=== PATIENT | male | born 1955 | race Caucasian/White ===

== ENCOUNTER 2017-09-14 09:58 | Emergency (ER) | payer SELFPAY ==
[~2017-09-14] VITALS: Ht 185.4 cm; Wt 79.1 kg
[2017-09-14 10:05] VITALS: TEMP 98.1
[2017-09-14] MEDS ORDERED: ZANTAC 150MG T150 MG PO (10:08)
[2017-09-14] MEDS ORDERED: CIPRO 500MG TA500 MG PO ×2 (10:08→13:12)
[2017-09-14 11:25] LABS: COLLECTION METHOD CLEAN CATCH
[2017-09-14 11:33] LABS: BASO % 0.1 % (0.0-2.0); GRAN # 6.8 (1.4-6.5); GRAN % 81.5 % (42.2-75.2); HEMATOCRIT 44.2 % (42.0-52.0); HEMOGLOBIN 15.4 g/dl (13.5-18.0); MEAN CELL VOLUME 92 fl (80.0-100.0); MEAN CORPUSCULAR HEMOGLOBIN 32 pg (27.0-31.0); MEAN CORPUSCULAR HGB CONC 35 g/dl (33.0-37.0); MEAN PLATELET VOLUME 9.4 fl (7.4-10.4); MONO # 0.5 (0.1-0.6); PLATELET COUNT 116 K/mm3 (130-400); RED BLOOD COUNT 4.81 M/mm3 (4.20-5.60); REDCELL DISTRIBUTION WIDTH-CV 11.9 % (11.5-14.5)
[2017-09-14 11:43] LABS: ALBUMIN 4.5 gm/dL (3.5-5.0); BILIRUBIN,TOTAL 0.6 mg/dL (0.0-1.0); CALCIUM 8.6 mg/dL (8.4-10.2); CREATININE, serum 0.73 mg/dL (0.66-1.25); TOTAL PROTEIN 7.5 gm/dL (6.4-8.2)
[2017-09-14 11:45] LABS: PH 6 (5-8); SQUAMOUS EPITHELIAL None Seen /hpf; URINE APPEARANCE Clear; URINE BACTERIA None Seen /hpf; URINE BILIRUBIN Negative (NEGATIVE); URINE BLOOD Negative (NEGATIVE); URINE COLOR Yellow; URINE GLUCOSE Negative (NEGATIVE); URINE KETONE Trace (NEGATIVE); URINE LEUKOCYTE ESTERASE Negative (NEGATIVE); URINE NITRATE Negative (NEGATIVE); URINE PROTEIN(semi-quant) 1+ (NEGATIVE); URINE RBC 0-2 /hpf; URINE UROBILINOGEN Negative (NEGATIVE)
[2017-09-14 12:15] LABS: C-REACTIVE PROTEIN 18.4 mg/dL (0.0-0.9)
[2017-09-14] MEDS ORDERED: FLAGYL500 MG PO (13:12)
[2017-09-14] MEDS ORDERED: PHENERGAN 25 TA25 MG PO (13:12)
[2017-09-14] MEDS ORDERED: ZOFRAN ODT4 MG PO (13:12)
[2017-09-14] MEDS ORDERED: PERCOCET 325 MG1 TA2 PO (13:12)
[2017-09-14 13:30] VITALS: BP 105/77; PULSE 81
== END 2017-09-14 13:30 | disposition home or self-care (01) ==
LOC: COL.ER 09:58
PROVIDERS: Physician Assistant
DX: K57.32 Diverticulitis of large intestine without perforation or abscess without bleeding (principal); J45.909 Unspecified asthma, uncomplicated
CPT/HCPCS: J1170; J1885; J2405; J7030; Q9967

== ENCOUNTER 2021-08-01 22:18 | Emergency (ER) | payer BC ==
[~2021-08-01] VITALS: Ht 182.9 cm; Wt 72.7 kg
[~2021-08-01 22:18] MED LIST: CIPRO 500MG TA500 MG PO; FLAGYL500 MG PO; PERCOCET 325 MG1 TA2 PO; PHENERGAN 25 TA25 MG PO; ZANTAC 150MG T150 MG PO; ZOFRAN ODT4 MG PO
[2021-08-01 22:31] VITALS: TEMP 97.5
[2021-08-01 23:23] LABS: BASO % 0.4 % (0.0-2.0); EOS % 0.2 % (0.0-4.0); GRAN # 6.5 K/mm3 (1.4-6.5); GRAN % 79.5 % (42.2-75.2); HEMATOCRIT 47.5 % (42.0-52.0); HEMOGLOBIN 16.7 g/dl (13.5-18.0); LYMPH % 12.4 % (20.0-51.0); MEAN CELL VOLUME 89 fl (80.0-100.0); MEAN CORPUSCULAR HEMOGLOBIN 31 pg (27-31); MEAN CORPUSCULAR HGB CONC 35 g/dl (33.0-37.0); MEAN PLATELET VOLUME 8.6 fl (7.4-10.4); MONO # 0.6 K/mm3 (0.1-0.6); MONO % 7.1 % (1.7-9.3); PLATELET COUNT 194 K/mm3 (130-400); RED BLOOD COUNT 5.33 M/mm3 (4.20-5.60); REDCELL DISTRIBUTION WIDTH-CV 11.9 % (11.5-14.5)
[2021-08-01 23:42] LABS: ALANINE AMINOTRANSFERASE 113 U/L (0-55); ALBUMIN 5.3 gm/dL (3.4-4.8); ALKALINE PHOSPHATASE 51 U/L (40-150); ANION GAP 16 mmol/L (7-16); AST,SGOT 52 U/L (5-34); BILIRUBIN,TOTAL 1.4 mg/dL (0.2-1.2); BLOOD UREA NITROGEN 11 mg/dL (8-26); CALCIUM 9.5 mg/dL (8.4-10.2); CARBON DIOXIDE 18 mmol/L (23-31); CHLORIDE 96 mmol/L (98-107); CREATININE, serum 0.81 mg/dL (0.72-1.25); GLUCOSE 91 mg/dL (70-99); LIPASE 20 U/L (8-78); POTASSIUM 4.1 mmol/L (3.5-4.5); SODIUM 130 mmol/L (136-145); TOTAL PROTEIN 8.2 gm/dL (6.2-8.1)
[2021-08-01 23:50] LABS: TROPONIN-I < 0.010 ng/mL (0.00-0.033)
[2021-08-02 01:06] VITALS: BP 145/70; PULSE 68
== END 2021-08-02 01:02 | disposition home or self-care (01) ==
LOC: COL.ER 22:18
PROVIDERS: Student in an Organized Health Care Education/Training Program
DX: R10.13 Epigastric pain (principal); E87.1 Hypo-osmolality and hyponatremia; E87.8 Other disorders of electrolyte and fluid balance, not elsewhere classified; Z79.2 Long term (current) use of antibiotics; Z79.899 Other long term (current) drug therapy
CPT/HCPCS: Q9967

== ENCOUNTER 2021-08-22 07:29 | Day surgery (SDC) | payer BC ==
[~2021-08-22] VITALS: Ht 182.9 cm; Wt 74.8 kg
[2021-08-22 08:02] VITALS: BP 125/93; PULSE 75; TEMP 97.4
[2021-08-22] MEDS ORDERED: PEPCID40 MG PO (08:10)
[2021-08-22] MEDS ORDERED: NEXIUM 24HR20 M1 PO (08:10)
[2021-08-22] MEDS ORDERED: FLONASEALLERGY NS (08:11)
[2021-08-22] MEDS ORDERED: TYLENOL 325MG325 MG PO (08:11)
[2021-08-22 08:45] VITALS: BP 137/90; PULSE 64; TEMP 98
--- NOTE | 2021-08-22 08:45 | NUR ---
pt to [facility] via cart from endo room, walked to chair, in room, takes water, call light in reach, no c/o
[2021-08-22 09:00] VITALS: BP 145/90; PULSE 67
[2021-08-22 09:15] VITALS: BP 118/86; PULSE 63
--- NOTE | 2021-08-22 09:15 | NUR ---
in room to talk to pt, iv d'cd intact, pt is up and dressed, reviewed discharged inst. with pt on EGD, followup and moderate sedatioin precautions with verbal understanding. pt discharged at 0930 via w/c to car
== END 2021-08-22 09:30 | disposition home or self-care (01) ==
LOC: SDCO 07:29
DX: K29.50 Unspecified chronic gastritis without bleeding (principal); K21.9 Gastro-esophageal reflux disease without esophagitis; K42.9 Umbilical hernia without obstruction or gangrene; K40.90 Unilateral inguinal hernia, without obstruction or gangrene, not specified as recurrent; Z79.899 Other long term (current) drug therapy; Z83.79 Family history of other diseases of the digestive system
CPT/HCPCS: J2704; J3010; J7030

== ENCOUNTER → 2021-09-23 | Outpatient (CLI) | payer BC ==
[~2021-09-23] MED LIST changes: +FLONASEALLERGY NS; +NEXIUM 24HR20 M1 PO; +PEPCID40 MG PO; +TYLENOL 325MG325 MG PO
== END ==
LOC: COL.RAD 07:03
DX: R10.13 Epigastric pain (principal)

== ENCOUNTER → 2021-10-13 | Outpatient (CLI) | payer BC | END | disposition still patient (30) | LOC: COL.RAD 09:35 | DX: R10.11 Right upper quadrant pain (principal) | CPT/HCPCS: A9537 ==